=== PATIENT | male | born 1950 | race Caucasian/White ===

== ENCOUNTER 2024-11-16 11:03 | Day surgery (SDC) | payer MEDICARE, BC ==
[2024-11-13 11:17] LABS: BASOPHILS % (AUTO) 0.5 % (0-1); EOSINOPHILS # (AUTO) 0.2 X10'3 (0-0.9); EOSINOPHILS % (AUTO) 2.7 % (0-6); HEMATOCRIT 41.6 % (42.0-52.0); HEMOGLOBIN 13.3 g/dl (14.0-17.9); LYMPHOCYTES # (AUTO) 1.5 X10'3 (1.1-4.8); LYMPHOCYTES % (AUTO) 25.1 % (21-51); MEAN CORPUSCULAR HEMOGLOBIN 21.9 PG (27.0-31.0); MEAN CORPUSCULAR HGB CONC 31.9 g/dL (33.0-36.5); MEAN CORPUSCULAR VOLUME 68.7 FL (78-98); MEAN PLATELET VOLUME 9.2 FL (7.4-10.4); MONOCYTES # (AUTO) 0.6 X10'3 (0-0.9); MONOCYTES % (AUTO) 9.3 % (2-12); NEUTROPHILS # (AUTO) 3.8 X10'3 (1.8-7.7); NEUTROPHILS % (AUTO) 62.4 % (42-75); PLATELET COUNT 207 X10'3 (140-440); RED BLOOD COUNT 6.05 X10'6 (4.70-6.10); RED CELL DISTRIBUTION WIDTH 16.4 % (11.5-14.5)
[2024-11-13 11:25] LABS: APTT 29 SECONDS (22-32); INR 1.3 INR
[2024-11-13 11:30] LABS: ALBUMIN 3.8 G/DL (3.4-5.0); ANION GAP 6 (8-16); BLOOD UREA NITROGEN 18 MG/DL (7-18); BUN/CREATININE RATIO 17.8 (10.0-20.0); CALCIUM 8.5 MG/DL (8.5-10.1); CHLORIDE 106 MMOL/L (99-107); CHOL/HDL RATIO 1.9 (0.00-4.99); CHOLESTEROL 99 MG/DL (0-200); CREATININE 1.01 MG/DL (0.60-1.10); GLUCOSE 113 MG/DL (70-104); HDL CHOLESTEROL 53 MG/DL (35-60); LDL CHOLESTEROL 40 MG/DL (50-100); POTASSIUM 3.5 MMOL/L (3.5-5.1); SODIUM 141 MMOL/L (135-145); TOTAL CARBON DIOXIDE 28.8 MMOL/L (24-32); TRIGLYCERIDES 50 MG/DL (20-135); eGFR 72 ML/MIN
[2024-11-13 11:59] LABS: ANISOCYTOSIS 1+; MICROCYTOSIS 2+; PLATELET ESTIMATE NORMAL
[2024-11-13 12:00] LABS: ELLIPTOCYTES 1+
[2024-11-16] VITALS (9 sets, daily range): BP systolic 130–143; BP diastolic 72–97; PULSE 64–69; RESP 14–16; TEMP 98.3; O2SAT 95–96
[~2024-11-16] VITALS: Ht 172.7 cm; Wt 68.0 kg
[2024-11-16] MEDS ORDERED: SACU1TAB PO (11:24)
[2024-11-16] MEDS ORDERED: ATOR40TA72 PO (11:24)
[2024-11-16] MEDS ORDERED: TAMS-55 (11:24)
[2024-11-16] MEDS ORDERED: EMPA25TA PO (11:24)
[2024-11-16] MEDS ORDERED: TIRZ12.5 (11:24)
[2024-11-16] MEDS ORDERED: LORazepam 0.5 MG tablet PO PRN (11:30)
--- NOTE | 2024-11-16 11:33 | ELECTROCARDIOGRAPH REPORT ---
[facility] Heart Test Date: 2024-11-16 Test Time: 11:29:44 Pat Name: ERNESTO OLIVARES Department: [facility] O Patient ID: [facility]-[id number] Room: Gender: M [employer] Supervisor: BLU : [id number] Requested By: AARON MENDOZA Order Number: [id number] Reading MD: Dr. Lata Mendoza Measurements Intervals Witter Rate: 76 P: 89 FL: 233 QRS: -67 QRSD: 160 T: 116 QT: 476 QTc: 536 Interpretive Statements Atrial-sensed ventricular-paced complexes No further rhythm analysis attempted due to paced rhythm Prolonged FL interval Electronically Signed On 11-17-2024 9:06:[address] Lata Mendoza Please click the below link to view image of tracing.
[2024-11-16] MEDS: normal saline 1,000 ML IV SCH (12:56)
[2024-11-16] MEDS: diphenhydrAMINE 25mg capsule PO PRN (12:56)
[2024-11-16] MEDS ORDERED: verapamil 2.5 mg/ml inj IV ONE (13:27)
[2024-11-16] MEDS ORDERED: LIDOcaine 1% (10mg/ml) 2ml vial ONE (13:27)
[2024-11-16] MEDS ORDERED: heparin 1,000unit/ml 10ml vial 10 ML ONE (13:27)
[2024-11-16] MEDS ORDERED: iohexol 350MG/ML 100ml bottle IV ONE (13:27)
[2024-11-16] MEDS ORDERED: midazolam 1 mg/ML 2ml injection ONE (13:28)
[2024-11-16] MEDS ORDERED: fentaNYL/PF 50MCG/1 ML 2ML syringe ONE (13:28)
[2024-11-16] MEDS ORDERED: nitroGLYCERIN 500mcg/5mL D5W 5 ML IV ONE (13:33)
[2024-11-16] MEDS ORDERED: LIDOcaine 1% 30ml preserv. free vial ONE (14:03)
[2024-11-16] MEDS ORDERED: HYDROcodone/acetaminophen 5mg/325mg tablet PO PRN (14:55)
[2024-11-16] MEDS ORDERED: HYDROcodone/acetaminophen 10/325mg tab PO PRN (14:55)
--- NOTE | 2024-11-16 15:49 | CARDIAC CATH REPORT ---
Cardiac Cath Report Providers to CC CC: BERNARDINO FITZGERALD MD Procedure Comments: 1. Left Heart Catheterization 2. Selective Coronary Angiography 3. Right Radial artery access 4. Right Femoral artery access 5. Right femoral artery angiography 6. Closure of femoral artery with Perclose x 1 7. Closure of radial artery with VascBand x 1 Brief History/Indications: 73yo man with HTN, HLD, Bradycardia(s/p DC PPM) and reduced ejection fraction referred for evaluation. Techniques: After informed consent was obtained, the patient was brought to the cardiac catheterization laboratory and prepped and draped in usual sterile fashion for left heart catheterization and other procedures mentioned above. The right wrist was anesthetized with 1% Lidocaine and the right radial artery accessed via the Seldinger technique after which a 6Fr sheath was placed. Through this, attempted to advance a TIG, however, significant innominate/subclavian stenosis preventing access to the Ascending Aorta so decided to proceed to femoral access. The right groin was anesthetized with 1% Lidocaine and the femoral artery accessed via the Seldinger technique after which a 6Fr sheath was placed. Through this a JL4 was used to engage the left coronary artery, a JR4 to engage the right coronary artery and left ventricle. At the conclusion of the case the sheaths were removed and hemostasis obtained with a Vascband for the radial sheath and a Perclose device for the femoral sheath. Findings Findings: HEMODYNAMICS: LV: 131/- mmHg LVEDP: 5 mmHg Ao: 133/72, MAP 94 mmHg CORONARY ARTERIES:(DENIS II flow throughout coronary arteries) Co Dominant LMCA: Luminal Irregularities LAD: Distal 30-40% stenosis D1: Luminal Irregularities D2: Luminal Irregularities LCx: Proximal and mid 20% stenosis OM1: Luminal Irregularities OM2: Luminal Irregularities OM3: Luminal Irregularities RCA: 20% Mid and distal stenosis PDA: 20-30% stenosis PL: Ostial 30% stenosis Results Results: 1. No significant obstructive CAD, although, DENIS II flow throughout coronary arteries 2. RRA access, converted to RFA access due to tortuous Innominate artery 3. RRA closed with VascBand. RFA closed with Perclose x 1 RECOMMENDATIONS: 1. Recommend uptitration of max-tolerated GDMT 2. Consider upgrade of DC PPM to BiV PPM given >80% RV pacing AARON FITZGERALD MD November 16, 2024 15:49
== END 2024-11-16 17:00 | disposition home or self-care (01) ==
LOC: SSTAY O 11:03
PROVIDERS: ATTEND Student in an Organized Health Care Education/Training Program
DX: I25.10 Atherosclerotic heart disease of native coronary artery without angina pectoris (principal); I50.9 Heart failure, unspecified; I11.0 Hypertensive heart disease with heart failure; I35.0 Nonrheumatic aortic (valve) stenosis; E78.5 Hyperlipidemia, unspecified; Z79.899 Other long term (current) drug therapy
CPT/HCPCS: 36415; 80048; 80061; 82948; 83695; 85025; 85610; 85730; 93005; 93458; 99152; A6258; A6402; C1760; C1894; J1644; J2003; J2250; J3010; J3490; J7030; Q0163; Q9967; Z7610; 85008; 99153